=== PATIENT | male | born 2000 | race Two or more races ===

== ENCOUNTER 2024-02-17 12:19 | Emergency (ER) | payer SELFPAY ==
[~2024-02-17] VITALS: Ht 180.3 cm; Wt 110.8 kg
[2024-02-17 13:50] LABS: Basophils # (auto) 0.1 10 ^3/uL (0-0.2); Basophils % (auto) 0.4 % (0.0-2.0); Eosinophils # (auto) 0.3 10 ^3/uL (0-0.8); Eosinophils % (auto) 1.9 % (0.0-7.0); Hematocrit 47.8 % (41.0-53.0); Lymphocytes # (auto) 2.7 10 ^3/uL (0.4-5.4); Lymphocytes % (auto) 19.5 % (10.0-50.0); Mean Corpuscular Hemoglobin 30.5 pg (28.0-32.0); Mean Corpuscular Hgb Conc. 33.4 g/dL (32.0-36.0); Mean Corpuscular Volume 91.3 fL (80.0-100.0); Monocytes # (auto) 1.1 10 ^3/uL (0-1.3); Monocytes % (auto) 7.7 % (0.0-12.0); Neutrophils # (auto) 9.8 10 ^3/uL (1.6-8.6); Neutrophils % (auto) 70.5 % (37.0-80.0); Nucleated Red Blood Cells % 0.1 %; Platelet Count (auto) 323 10^3/uL (140-450); Red Blood Cells 5.24 10^6/uL (4.5-5.90); Red Cell Distribution Width 14.6 % (11.8-14.3); White Blood Cell 13.9 10^3/uL (4.4-10.8)
[2024-02-17 13:56] LABS: Anion Gap 5 (5-15); Carbon Dioxide 27 mmol/L (20-30); Chloride 103 mmol/L (98-107); Potassium 4.3 mmol/L (3.5-5.1); Sodium 135 mmol/L (136-145)
[2024-02-17 13:57] LABS: Calcium 10.1 mg/dL (8.7-10.4)
[2024-02-17 14:02] LABS: Blood Urea Nitrogen 13 mg/dL (9-23); Glucose 119 mg/dL (74-106)
[2024-02-17] MEDS: IOHEXOL 300 MG/ML 100ML BOTTLE IJ ONE (15:56)
[2024-02-17 16:52] VITALS: BP 132/62; PULSE 87; RESP 17; TEMP 99; O2SAT 97
== END 2024-02-17 16:55 | disposition home or self-care (01) ==
LOC: ER 12:19
DX: M54.2 Cervicalgia (principal); Z90.49 Acquired absence of other specified parts of digestive tract
CPT/HCPCS: 36415; 70490; 80048; 85025